=== PATIENT | female | born 1970 | race Caucasian/White ===

== ENCOUNTER 2023-11-01 09:19 | Emergency (ER) | payer MEDICAID ==
[~2023-11-01] VITALS: Ht 172.7 cm; Wt 64.9 kg
[2023-11-01 09:40] VITALS: TEMP 98.1
[2023-11-01] MEDS ORDERED: HYDROCODONE/APAP 5/325MG TABLET ONE (10:34)
[2023-11-01] MEDS ORDERED: KETOROLAC TROMETHAMINE INJ 30 MG/ML VIAL ONE (10:34)
[2023-11-01] MEDS: KETOROLAC TROMETHAMINE INJ 30 MG/ML VIAL IM ONE (10:41)
[2023-11-01] MEDS: HYDROCODONE/APAP 5/325MG TABLET PO ONE (10:42)
[2023-11-01] MEDS ORDERED: HYDR-4209 PO ×2 (13:11→13:16)
[2023-11-01] MEDS ORDERED: KETO10TA2 PO (13:11)
[2023-11-01 13:45] VITALS: BP 138/90
[2023-11-01 13:51] VITALS: O2SAT 98
== END 2023-11-01 14:08 | disposition home or self-care (01) ==
LOC: ER 09:19
DX: S39.92XA Unspecified injury of lower back, initial encounter (principal); W18.30XA Fall on same level, unspecified, initial encounter; Y93.89 Activity, other specified; Y92.89 Other specified places as the place of occurrence of the external cause; Y99.8 Other external cause status
CPT/HCPCS: 99285; 96372; 72220; J1885